=== PATIENT | female | born 1975 | race African-American/Black ===

== ENCOUNTER 2018-03-26 20:09 | Emergency (ER) | payer OTHER ==
[~2018-03-26] VITALS: Ht 157.5 cm; Wt 86.2 kg
[~2018-03-26 20:09] MED LIST: AMLODIPINE; CIPRO500 MG PO; FLAGYL500 MG PO; HYDROCHLOROTHIA25 M1; HYDROCODONE-AP1 EAC6 PO; IBUPROFEN 200200 M1 PO; LEVOTHYROXINE 0.1 MG; PRINIVIL10 MG PO; TRAZODONE 150150 M1; TYLENOL325 MG PO; ZOFRAN ODT4 MG PO
[2018-03-26] MEDS ORDERED: DOXYCYCLINE 10100 MG PO (20:41)
[2018-03-26] MEDS ORDERED: NORVASC5 MG PO (21:11)
[2018-03-26] MEDS ORDERED: HYDROCHLOROTH12.5 M2 PO (21:11)
[2018-03-26 21:18] VITALS: BP 202/116
== END 2018-03-26 21:19 | disposition home or self-care (01) ==
LOC: M.ERS 20:09
DX: L03.113 Cellulitis of right upper limb (principal); I10 Essential (primary) hypertension; E07.9 Disorder of thyroid, unspecified; Z90.49 Acquired absence of other specified parts of digestive tract

== ENCOUNTER 2018-04-23 15:18 | Emergency (ER) | payer OTHER ==
[~2018-04-23] VITALS: Ht 177.8 cm; Wt 90.7 kg
[~2018-04-23 15:18] MED LIST changes: +DOXYCYCLINE 10100 MG PO; +HYDROCHLOROTH12.5 M2 PO; +NORVASC5 MG PO
[2018-04-23 16:09] LABS: ABSOLUTE BASOPHILS 0.1 thou/uL (0.0-0.2); ABSOLUTE EOSINOPHILS 0.2 thou/uL (0.0-0.7); ABSOLUTE LYMPHOCYTES 2.7 thou/uL (0.8-5.3); ABSOLUTE MONOCYTES 0.5 thou/uL (0.0-1.2); EOSINOPHILS 1.6 %; HEMOGLOBIN 15.2 gm/dL (12.0-15.0); LYMPHOCYTES 23.5 %; MCH 27.5 pg (26.0-34.0); MCHC 33.1 g/dL (28.0-37.0); MCV 83.1 fL (80.0-100.0); MONOCYTES 4.4 %; MPV 8.1 fl. (7.2-11.1); NUCLEATED RBCS 0 /100WBC; PLATELET COUNT* 299 thou/uL (150-400); POLYS 69.5 %; RBC 5.54 mil/uL (4.20-5.00); RDW-CV 14.7 % (10.5-14.5); WBC 11.5 thou/uL (4.0-11.0)
[2018-04-23 16:18] LABS: ANION GAP 6 mmol/L (7-16); APTT 30.1 Seconds (25.0-31.3); BUN 10 mg/dL (7-18); CALCIUM 8.9 mg/dL (8.5-10.1); CHLORIDE 100 mmol/L (98-107); CO2 31 mmol/L (21-32); GLUCOSE 93 mg/dL (70-99); POTASSIUM 3.1 mmol/L (3.5-5.1); PROTIME 9.9 Seconds (9.20-11.50); SODIUM 137 mmol/L (136-145)
[2018-04-23 16:36] LABS: ALBUMIN 3.7 g/dL (3.4-5.0); ALKALINE PHOSPHATASE 128 U/L (46-116); CK-MB MASS 0.9 ng/mL (<0.5-3.6); LIPASE 87 U/L (73-393); NT-PRO BRAIN NAT PEPTIDE 57 pg/mL (<300); SGOT 19 U/L (15-37); SGPT 21 U/L (30-65); TOTAL BILIRUBIN 0.4 mg/dL (<0.1-1.0); TOTAL PROTEIN 8.8 g/dL (6.4-8.2); TROPONIN-I LEVEL <0.06 ng/mL (<0.06)
[2018-04-23 17:29] VITALS: BP 170/100
--- NOTE | 2018-04-24 16:37 | EKG ---
[place] [address] ELECTROCARDIOGRAM REPORT Name: WILLIAMBERNADINE R Room: [facility]#: [id number] Admission: 04/23/18 Attend Phys: Discharge: 04/23/18 Date of : 73 Report #: [id number] THIS REPORT FOR: //name// [facility] ED Test Date: 2018-04-23 Test Time: 17:13:58 Pat Name: BERNADINE THOMAS Department: Room: Gender: F [employer]ead [employer] Taper: SOBIA : 1975 Requested By: Carlos Enrique Oconnell Order Number: [id number] MD: Rosendo Parry Measurements Intervals [place] Rate: 69 P: 21 [place]: 186 QRS: 39 QRSD: 92 T: 50 QT: 418 QTc: 448 Interpretive Statements Sinus rhythm Compared to ECG 05/31/2016 10:49:11 Left ventricular hypertrophy no longer present Q waves no longer present Electronically Signed On 04-24-2018 16:37:23 CDT by Rosendo Parry [email or web address] <ELECTRONICALLY SIGNED> By: Rosendo Parry MD, [facility] 04/24/18 1637 12 12 Rosendo Parry MD, FACC /EPI
== END 2018-04-23 17:30 | disposition home or self-care (01) ==
LOC: M.ERS 15:18
PROVIDERS: Family Medicine
DX: I10 Essential (primary) hypertension (principal); H11.32 Conjunctival hemorrhage, left eye; Z90.49 Acquired absence of other specified parts of digestive tract; E07.9 Disorder of thyroid, unspecified